=== PATIENT | female | born 1985 | race Caucasian/White ===

== ENCOUNTER 2019-05-29 08:50 | Outpatient (CLI) | payer OTHER | END 2019-05-29 09:48 | disposition home or self-care (01) | LOC: NST 08:50 | DX: Z34.83 Encounter for supervision of other normal pregnancy, third trimester (principal) ==

== ENCOUNTER 2019-06-12 09:46 | Outpatient (CLI) | payer OTHER ==
[2019-06-12] MEDS ORDERED: PRENATAL 19 TA1 EACH PO (12:08)
== END 2019-06-13 13:34 | disposition home or self-care (01) ==
LOC: NST 09:46 → OBS/DEL 09:46
DX: O60.03 Preterm labor without delivery, third trimester (principal)

== ENCOUNTER 2019-06-16 08:54 | Outpatient (CLI) | payer OTHER ==
[~2019-06-16 08:54] MED LIST: PRENATAL 19 TA1 EACH PO
== END 2019-06-16 09:34 | disposition home or self-care (01) ==
LOC: NST 08:54
DX: Z34.83 Encounter for supervision of other normal pregnancy, third trimester (principal)

== ENCOUNTER 2019-06-30 09:14 | Outpatient (CLI) | payer OTHER | END 2019-06-30 10:09 | disposition home or self-care (01) | LOC: NST 09:14 | DX: Z34.83 Encounter for supervision of other normal pregnancy, third trimester (principal) ==

== ENCOUNTER 2019-07-05 00:35 | Inpatient (IN) | payer OTHER ==
[~2019-07-05] VITALS: Ht 152.4 cm; Wt 66.2 kg
[2019-07-05] MEDS ORDERED: PRENATAL 19 TA1 EACH PO (02:59)
== END 2019-07-07 12:55 | disposition home or self-care (01) | DRG 785 ==
LOC: LDR 00:35 → OB/GYN 00:35
PROVIDERS: ADMIT Obstetrics & Gynecology
PROC: 0UL70ZZ Occlusion of Bilateral Fallopian Tubes, Open Approach (ICD-10-PCS; 2019-07-05)
PROC: 4A1HXCZ Monitoring of Products of Conception, Cardiac Rate, External Approach (ICD-10-PCS; 2019-07-05)
PROC: 10D00Z1 Extraction of Products of Conception, Low, Open Approach (ICD-10-PCS; principal; 2019-07-05 01:30)
DX: O82 Encounter for cesarean delivery without indication (principal); O64.8XX0 Obstructed labor due to other malposition and malpresentation, not applicable or unspecified; Z3A.34 34 weeks gestation of pregnancy; Z37.0 Single live birth; Z30.2 Encounter for sterilization